=== PATIENT | female | born 1940 | race Caucasian/White ===

== ENCOUNTER 2017-11-17 09:58 | Outpatient (CLI) | payer OTHER | END 2017-11-17 10:04 | disposition home or self-care (01) | LOC: NUCLEAR 09:58 | DX: M81.0 Age-related osteoporosis without current pathological fracture (principal) ==

== ENCOUNTER 2017-11-27 09:26 | Outpatient (CLI) | payer OTHER | END 2017-11-27 09:32 | disposition home or self-care (01) | LOC: NUCLEAR 09:26 | DX: I80.02 Phlebitis and thrombophlebitis of superficial vessels of left lower extremity (principal) ==

== ENCOUNTER 2017-11-27 10:04 | Outpatient (CLI) | payer OTHER | END 2017-11-27 10:13 | disposition home or self-care (01) | LOC: MAMO-SONO 10:04 | DX: Z12.31 Encounter for screening mammogram for malignant neoplasm of breast (principal); Z87.898 Personal history of other specified conditions; N60.11 Diffuse cystic mastopathy of right breast; N60.12 Diffuse cystic mastopathy of left breast ==